=== PATIENT | female | born 1950 | race Caucasian/White ===

== ENCOUNTER → 2017-10-04 | Outpatient (CLI) | payer MEDICARE ==
[~2017-10-04] MED LIST: ALPR0.25 PO; DICY20TA10 PO; GABA600T PO; LINA290C PO; MIRA0.12 PO; PRAM1TAB PO; TRAM50 PO
[2017-10-04 10:15] LABS: HEMATOCRIT 40.3 % (35.0-46.0); HEMOGLOBIN 13.7 GM/DL (11.6-15.3); MEAN CELL VOLUME 91.7 FL (80.0-100.0); MEAN CORPUSCULAR HEMOGLOBIN 31.2 PG (27.0-34.0); MEAN CORPUSCULAR HGB CONC 34.1 % (32.0-36.0); MEAN PLATELET VOLUME 8.7 FL (7.0-11.0); PLATELET COUNT 256 TH/MM3 (150-450); RED BLOOD COUNT 4.39 MIL/MM3 (4.00-5.30); RED CELL DISTRIBUTION WIDTH 13.1 % (11.6-17.2); WHITE BLOOD COUNT 4.9 TH/MM3 (4.0-11.0)
[2017-10-04 10:17] LABS: BACTERIA, URINE MANY /hpf; BILIRUBIN, URINE NEG (NEG); BLOOD, URINE NEG (NEG); GLUCOSE,URINE NEG (NEG); KETONE, URINE NEG (NEG); MUCUS URINE FEW /lpf (OCC); NITRITE,URINE POS (NEG); PH, URINE 6.5 (5.0-8.5); URINE COLOR YELLOW (YELLW/STRAW); URINE LEUKOCYTE ESTERASE SMALL (NEG)
[2017-10-04 10:27] LABS: PROTHROMBIN TIME - PATIENT 9.8 SEC (9.8-11.6)
[2017-10-04 10:40] LABS: BICARBONATE 31.4 MEQ/L (21.0-32.0); CALCIUM 9.1 MG/DL (8.5-10.1); CREATININE 0.65 MG/DL (0.50-1.00)
--- NOTE | 2017-10-04 14:54 | EKG ---
Date Performed: 10/04/2017 Time Performed: 09:32:27 PTAGE: 67 years EKG: SINUS BRADYCARDIA WITH FIRST DEGREE AV BLOCK POSSIBLE RIGHT VENTRICULAR CONDUCTION DELAY AB NORMAL ECG NO PREVIOUS TRACING DOCTOR: Attila Monsalve Interpretating Date/Time 10/04/2017 14:52:13
== END ==
LOC: CPRE 08:53
PROVIDERS: ATTEND Orthopaedic Surgery
DX: Z01.810 Encounter for preprocedural cardiovascular examination (principal); Z01.812 Encounter for preprocedural laboratory examination; M17.11 Unilateral primary osteoarthritis, right knee; M79.609 Pain in unspecified limb; B96.20 Unspecified Escherichia coli [E. coli] as the cause of diseases classified elsewhere; R94.31 Abnormal electrocardiogram [ECG] [EKG]
CPT/HCPCS: 36415; 80048; 81001; 85027; 85610; 85730; 87077; 87086; 87186; 93005

== ENCOUNTER → 2017-10-21 | Outpatient (CLI) | payer MEDICARE ==
[~2017-10-21] MED LIST changes: -LINA290C PO; -MIRA0.12 PO; -TRAM50 PO
[2017-10-21 11:15] LABS: BILIRUBIN, URINE NEG (NEG); BLOOD, URINE NEG (NEG); GLUCOSE,URINE NEG (NEG); KETONE, URINE NEG (NEG); NITRITE,URINE NEG (NEG); URINE COLOR Straw (YELLW/STRAW); URINE LEUKOCYTE ESTERASE NEG (NEG)
== END ==
LOC: CPRE 09:44
PROVIDERS: ATTEND Orthopaedic Surgery
DX: Z01.812 Encounter for preprocedural laboratory examination (principal)
CPT/HCPCS: 81001

== ENCOUNTER 2017-10-28 05:10 | Inpatient (IN) | payer MEDICARE ==
[~2017-10-28] VITALS: Ht 177.8 cm; Wt 102.6 kg
[2017-10-28] MEDS ORDERED: SODIUM CHLORID 0.9% 500 ML IV PRN (05:45)
[2017-10-28] MEDS ORDERED: METOPROLOL TARTRATE 25 MG TAB PO PRN (05:45)
[2017-10-28] MEDS ORDERED: CHLORHEXIDINE GLUCONATE 4% SOLN 120 ML BTL TOPICAL SCH (05:45)
[2017-10-28] MEDS ORDERED: TRANEXAMIC ACID INJ 870 MG in SODIUM CHLORIDE 0.9% INJ 100 ML IV SCH (05:45)
[2017-10-28] MEDS ORDERED: CHLORHEXIDINE GLUCONATE 2 % 1 PACK (2 CLOTHS) TOPICAL PRN (05:45)
[2017-10-28] MEDS ORDERED: LACTATED RINGER'S 1000 ML IV PRN (05:45)
[2017-10-28] MEDS ORDERED: ceFAZolin 2 GM PREMIX 50 ML IV SCH (05:45)
[2017-10-28] MEDS ORDERED: EXPAREL PERI-ARTICULAR INJECTION (TOTAL VOL. 100 ML) P-ARTICULR SCH ×2 (05:45)
[2017-10-28] MEDS ORDERED: POVIDONE IODINE 5% (ANTISEPSIS KIT) 4 APPLICATIONS EACH NARE PRN (05:45)
[2017-10-28] MEDS ORDERED: FAT EMULSION 20% INJ 0 ML ONE (06:00)
[2017-10-28] MEDS ORDERED: GENTAMICIN SULFATE 80 MG/2 ML VIAL ONE (06:06)
[2017-10-28] MEDS ORDERED: BUPIVACAINE LIPOSOME PF 1.3% 20 ML VIAL ONE (06:26)
[2017-10-28] MEDS ORDERED: LIDOCAINE HCL 1% PF 5 ML AMPULE ONE (06:26)
[2017-10-28] MEDS ORDERED: MIDAZOLAM HCL 5 MG/5 ML VIAL ONE (06:27)
[2017-10-28] MEDS ORDERED: BUPIVACAINE HCL PF 0.25% 30 ML VIAL ONE (06:27)
[2017-10-28] MEDS ORDERED: ACETAMINOPHEN 1000 MG/100 ML 100 ML IV ONE (06:40)
[2017-10-28] MEDS ORDERED: MORPHINE SULFATE 4 MG/ML INJ ONE (06:40)
[2017-10-28] MEDS ORDERED: BUPIVACAINE PF 0.75% DEX-WATER INJ 2 ML AMP ONE ×2 (06:42→07:04)
[2017-10-28] MEDS ORDERED: MAGNESIUM HYDROXIDE SUSP 30 ML CUP PO PRN (07:00)
[2017-10-28] MEDS ORDERED: Post-op Orders (for Pharmacy) XX ONE (07:00)
[2017-10-28] MEDS ORDERED: ZOLPIDEM TARTRATE 5 MG TAB PO PRN (07:00)
[2017-10-28] MEDS ORDERED: MORPHINE SULFATE 4 MG/ML INJ IV PUSH PRN (07:00)
[2017-10-28] MEDS ORDERED: TRANEXAMIC ACID INJ 0 MG in SODIUM CHLORIDE 0.9% INJ 100 ML IV SCH (07:00)
[2017-10-28] MEDS ORDERED: ACETAMINOPHEN/HYDROcodone 325 MG/7.5 MG TAB PO PRN (07:00)
[2017-10-28] MEDS: TRANEXAMIC ACID INJ 870 MG in SODIUM CHLORIDE 0.9% INJ 100 ML IV SCH ×2 (07:23→10:24)
[2017-10-28] MEDS ORDERED: HYDROmorphone HCL PF 2 MG/ML VIAL ONE (08:07)
[2017-10-28] MEDS ORDERED: PROPOFOL 500 MG/50 ML INJ 50 ML ONE (08:08)
--- NOTE | 2017-10-28 09:40 | PD.OP ---
Operative Report Date of Surgery: Oct 28, 2017 Preoperative Diagnosis: (1) Primary osteoarthritis of right knee Postoperative Diagnosis: (1) Primary osteoarthritis of right knee Procedure: Right total knee arthroplasty using Gallion Triathlon prosthesis (uncemented) Anesthesia: Spinal with supplemental adductor canal block regional and local with Exparel Surgeon: Lloyd Luu MD Electrical System Specialist(s): DOROTHY Mendoza Operation and Findings: Indications and Findings: This 67-year-old woman has had long-standing right knee pain nonresponsive to conservative measures. Her ambulation tolerance is 10-15 minutes. She has difficulty with stairs and standing from a seated position. She has not responded to anti-inflammatory agents, activity modification, exercises or ambulatory aids. Physical findings showed severe crepitation on range of motion with tenderness on motion and antalgic gait. Some effusion. Imaging studies including x-ray and MRI show severe arthritis with loss of articular cartilage to [id number] in the patellofemoral compartment, significant degenerative change in the medial compartment especially as well. Operative findings: There is severe osteoarthritis in the right knee with patellofemoral articular cartilage loss to [id number] with eburnation and osteophytes. There are medial and lateral osteophytes. The medial compartment had marked irregularity going down to expose subchondral bone in the medial femoral condyle especially. The prosthesis used was a Camryn Triathlon prosthesis. The femur was a size 7, cruciate retaining, uncemented. The tibial baseplate was a size 7 Tritanium with a 11 mm cruciate retaining X3 polyethylene spacer. The patella was a size 38 mm asymmetric Tritanium backed. The patient was brought to the clean-air operating suite. A spinal anesthetic was administered as well as a regional anesthetic by adductor canal block. The position was supine with a small bolster under the hip on the operative side. A pneumatic tourniquet was applied to the upper thigh. The lower extremity was prepped with alcohol, Hibiclens and ChloraPrep and draped in the usual manner with the knee draped free. An appropriate timeout procedure was carried out. An incision was made from about 3 fingerbreadths above the superior medial pole of patella down the tibial tubercle on the medial side. The incision was deepened through the subcutaneous tissue to the retinacular structures which were exposed medially and laterally. A medial retinacular incision was made from the superior middle pole of patella down the tibial tubercle and up into the quadriceps tendon splitting it longitudinally and the medial one third. The patella was reflected. The infrapatellar fat pad was debulked. The anterior cruciate ligament was excised. Medial and lateral meniscectomies were initiated. Fenestrations were made in the distal femur and proximal tibia for intramedullary referencing guides. The distal femoral cutting guide and jig were assembled for a 5, 8 mm cut. When this was fit into position,the cutting block was stabilized with pins. The jig was removed. The distal femoral cut was then completed with the oscillating saw. The sizing guide was positioned in place along Whitesides line and the epicondylar axis and stabilized with pins. The femoral size was determined as noted above. The 4-in-1 cutting block was positioned in place. Anterior and posterior cuts were made followed by posterior and anterior chamfer cuts taking care to prevent injury to ligamentous structures. Osteophytes were trimmed from the distal femur. A bone plug was placed into the fenestration of the distal femur. The proximal tibia was exposed. The medial and lateral meniscectomies were completed. The proximal tibial cutting guide was positioned in place and stabilized with a pin for rotation. The depth of cut was verified with a stylus off the high side. The cutting block was stabilized with pins. The jig was removed. The depth of cut was verified and adjusted appropriately with the use of the spacer block. The proximal tibial cut was made with the oscillating saw taking care to prevent injury to neurovascular and ligamentous structures. Proximal tibial bone was removed. Local anesthetic was administered with Exparel in the posterior capsule. The tibial baseplate trial was positioned in place. After verifying the appropriate size, the base plate trial was positioned in place along with its spacer. The femoral component was impacted into place. The alignment was checked. The tibial baseplate was pinned in place on the tibia. Attention was directed to the patella. The patella drill guide was positioned in place for the appropriate sized patella. Patellar drilling was then carried out. The trial patella was positioned in place. The knee was taken through a range of motion which was easily 0 extension to 140. The patella trial was removed. The femoral drill holes were made. The femoral trials were removed. The tibial spacer was removed. A bone plug was placed into the proximal tibia. The tibial punch was impacted through the proximal tibial punch guide. This was all removed followed by placement of the tibial drill guide. The tibial drill holes were made. The guide was removed. The cut ends of bone were cleaned with pulse lavage. The tibial baseplate was impacted into place and seated appropriately. The spacer was inserted. The the femoral component was impacted into place and seated appropriately. The patella component was seated with the patellar vice and tightened appropriately. Bone wax was placed around the exposed cancellus bone on the femur. The knee was taken through a range of motion which was comparable to the previous range of motion with excellent stability in flexion and extension and appropriate patellofemoral tracking. The remainder of the Exparel was injected throughout the knee as a local anesthetic. Drains were brought out the superior lateral aspect of the suprapatellar pouch. Wound closure commenced using 0 Vicryl interrupted [id number] sutures for the capsular and fascial structures, 2-0 Vicryl interrupted simple sutures with buried knots for the subcutaneous tissues and 4-0 Monocryl, continuous subcuticular closure for the skin. The wound was dressed with Dermabond Prineo followed by a dry sterile dressing. Sterile soft roll with a cooling pad and Dakota bandage from the base of the toes to mid thigh were applied. Patient was transferred from the operating room to the recovery room in satisfactory condition having tolerated procedure well. Counts were correct. Specimens: None. Estimated blood loss: 400 mL Genny Luu MD (Charles) Oct 28, 2017 09:40
--- NOTE | 2017-10-28 09:43 | HHI.FF ---
Face to Face Verification Diagnosis: (1) Status post total right knee replacement Physical Therapy Gait training Knee: Total knee, Protocol: Right, Gait training, Full weight bearing Right LE Weight Bearing: WB as tolerated Right LE Range of Motion: Active ROM (Active, active assisted, passive range of motion. Range of motion goal is 0 extension to 135 of flexion. Range of motion in the operating room was 0 extension to 140 of flexion.) Nursing Nursing: Dressing changes Dressing Changes: Daily dressing change, Coverderm/Primapore Additional Instructions Do not remove Dermabond Prineo. I have seen patient Essie Hsu on 10/28/17. My clinical findings support the need for the requested home health care services because: Ltd mobility - disease progression Limited ability to care for self High risk of falls I certify that my clinical findings support that this patient is homebound because: Post-op weakness Unsteady gait/balance Unsafe to leave home unassisted Genny Luu MD ([place]) Oct 28, 2017 09:42
[2017-10-28] MEDS ORDERED: HYDR-3580 PO (09:45)
[2017-10-28] MEDS ORDERED: ECASA81 PO (09:45)
[2017-10-28] MEDS ORDERED: DO NOT ADM ANY ANTICOAGULANT DRUGS PRN (09:49)
[2017-10-28] MEDS: LACTATED RINGER'S 1000 ML INJ 1,000 ML IV SCH (10:00)
[2017-10-28] MEDS: KETOROLAC TROMETHAMINE 30 MG/ML (IVP) VIAL IVP SCH ×3 (10:00→22:25)
[2017-10-28] MEDS ORDERED: *MEPERIDINE 25 MG INJ VIAL PERIprocedural Use ONLY ONE (10:06)
[2017-10-28] MEDS ORDERED: *ONDANSETRON 4 MG VIAL PERIprocedural Use ONLY ONE (10:27)
--- NOTE | 2017-10-28 10:29 | RADRPT ---
EXAM DATE: 10/28/2017 10:14 AM EDT AGE/SEX: 67 years / Female INDICATIONS: Post-op right knee replacement. CLINICAL DATA: This is the patient's initial encounter. Patient reports that signs and symptoms have been present for 1 day and indicates a pain score of 5/10. MEDICAL/SURGICAL HISTORY: None. Appendectomy. Tonsillectomy. COMPARISON: No prior exams available for comparison. FINDINGS: AP and lateral views of the knee following arthroplasty reveals a prosthesis in anatomic alignment. F racture is not appreciated. Surgical drain is evident . CONCLUSION: Status post total knee arthroplasty. Bear Lynch MD FACR Electronically signed by: Bear Lynch MD 10/28/2017 10:28 AM EDT
[2017-10-28] MEDS ORDERED: ceFAZolin INJ 1,000 MG VIAL IV ONE (12:00)
[2017-10-28] MEDS ORDERED: ONDANSETRON HCL 4 MG/2 ML VIAL IV PUSH ONE (12:00)
[2017-10-28] MEDS ORDERED: LACTATED RINGER'S 1000 ML INJ 1,000 ML IV ONE (12:00)
[2017-10-28] MEDS ORDERED: DEXAMETHASONE SOD PHOS 4 MG/ML VIAL IV ONE (12:00)
[2017-10-28] MEDS ORDERED: PROPOFOL 200 MG/20 ML AMP IV ONE (12:00)
[2017-10-28] MEDS: GABAPENTIN 300 MG CAP PO SCH ×2 (13:00→17:33)
[2017-10-28] MEDS: PRAMIPEXOLE DIHYDROCHLORIDE 1 MG TAB PO SCH (13:00)
--- NOTE | 2017-10-28 15:40 | PD.CONS ---
HPI Service [facility] Consult Requested By Dr. BIANCA Luu Reason for Consult Opinion recommendation treatment patient's restless leg syndrome Primary Care Physician Taran Wahl MD Diagnoses: History of Present Illness 67-year-old white female with a history of osteoarthritis was had long-term right knee pain despite conservative treatment electively underwent a right total knee arthroplasty with Dr. Luu today. She states that she does not struggle with constipation. She denies any blood in the stools or black tarry stools. She states her restless leg syndrome has been controlled by her home medications prescribed by her primary care physician. She states that she does not do well on tramadol and requests a different pain medication postoperatively. Currently, she states her pain is controlled. Review of Systems Constitutional: DENIES: Fatigue, Fever, Chills, Change in appetite Endocrine: DENIES: Heat/cold intolerance Eyes: DENIES: Blurred vision, Eye pain, Vision loss Ears, nose, mouth, throat: DENIES: Hearing loss, Nasal discharge, Throat pain, Ear Pain, Sinus Pain Respiratory: DENIES: Cough, Shortness of breath Cardiovascular: DENIES: Chest pain, Palpitations, Dyspnea on Exertion, Lower Extremity Edema Gastrointestinal: DENIES: Abdominal pain, Black stools, Bloody stools, Constipation, Diarrhea, Nausea, Vomiting Genitourinary: DENIES: Dysuria Musculoskeletal: COMPLAINS OF: Joint pain (Right knee pain), DENIES: Muscle aches, Stiffness Integumentary: DENIES: Rash Hematologic/lymphatic: DENIES: Bruising, Lymphadenopathy Immunologic/allergic: DENIES: Eczema Neurologic: DENIES: Headache, Localized weakness, Paresthesias Psychiatric: DENIES: Anxiety, Depression, Suicidal Ideation Past Family Social History Allergies: Coded Allergies: No Known Allergies (Unverified Allergy, Unknown, 10/28/17) Past Medical History Restless leg syndrome Osteoarthritis Past Surgical History Appendectomy Tonsillectomy Lap lysis of adhesions Left arthroscopic knee surgery Reported Medications Xanax 0.25 mg as directed as needed Gabapentin 600 mg p.o. 3 times daily Hydrocodone 1 p.o. every 4 as needed for pain Pramipexole 1 mg PO tid Family History Mother had colon cancer Social History Does not smoke cigarettes or drink alcohol Physical Exam Vital Signs Vital Signs Date Time Temp Pulse Resp B/P (MAP) Pulse Ox O2 Delivery O2 Flow Rate FiO2 10/28/17 11:00 52 16 112/59 (76) 95 Room Air 10/28/17 10:45 50 16 113/55 (74) 95 Room Air 10/28/17 10:30 52 16 107/54 (71) 98 Room Air 10/28/17 10:15 50 16 105/60 (75) 95 Room Air 10/28/17 10:00 49 16 109/55 (73) 94 Room Air 10/28/17 09:48 98.1 57 16 113/55 (74) 98 Nasal Cannula 2 10/28/17 06:10 98.8 56 18 151/70 (97) 99 Physical Exam GENERAL: This is a well-nourished, well-developed patient, in no apparent distress. SKIN: No rashes, ecchymoses or lesions. Cool and dry. HEAD: Atraumatic. Normocephalic. No temporal or scalp tenderness. EYES: Pupils equal round and reactive. Extraocular motions intact. No scleral icterus. No injection or drainage. ENT: Nose without bleeding, purulent drainage or septal hematoma. NECK: Trachea midline. No JVD or lymphadenopathy. Supple, nontender, no meningeal signs. CARDIOVASCULAR: Regular rate and rhythm RESPIRATORY: Clear to auscultation. Breath sounds equal bilaterally. No wheezes , rales, or rhonchi. GASTROINTESTINAL: Abdomen soft, non-tender, nondistended. No hepato-splenomegaly , or palpable masses. No guarding. MUSCULOSKELETAL: Right knee on CPM machine, bandage clean dry and intact NEUROLOGICAL: Awake and alert to person place time and situation. Cranial nerves II through XII intact. Motor and sensory grossly within normal limits. Normal speech. Assessment and Plan Assessment and Plan 1. Status post right total knee arthroplasty continue postoperative care, pain control, physical therapy per orthopedic surgery Dr. Luu 2. History of restless leg syndrome resume home Pramipexole 3. DVT prophylaxis risks and benefits of anticoagulation discussed with patient today. Initiate aspirin as per orthopedic surgery Thank you for this consultation Jacque Jack MD Oct 28, 2017 15:40
[2017-10-28 16:44] VITALS: BP 125/59; PULSE 55; RESP 18; TEMP 97; O2SAT 98
[2017-10-28] MEDS: ACETAMINOPHEN/HYDROcodone 325 MG/7.5 MG TAB PO PRN ×2 (17:32→22:25)
[2017-10-28] MEDS: ONDANSETRON HCL 4 MG/2 ML VIAL IVP PRN (17:33)
[2017-10-28 20:00] VITALS: BP 119/57; PULSE 65; RESP 19; TEMP 97.9; O2SAT 65; O2SAT 95
[2017-10-29] VITALS: BP 120/66; PULSE 68; RESP 19; TEMP 97.7; O2SAT 95
[2017-10-29] MEDS: KETOROLAC TROMETHAMINE 30 MG/ML (IVP) VIAL IVP SCH ×4 (03:18→21:35)
[2017-10-29] MEDS: ACETAMINOPHEN/HYDROcodone 325 MG/7.5 MG TAB PO PRN ×2 (03:19→08:04)
[2017-10-29 04:00] VITALS: BP 129/67; PULSE 68; RESP 18; TEMP 97; O2SAT 96
--- NOTE | 2017-10-29 06:16 | PD.ORT.PN ---
Subjective Post Op Day #: 1 Subjective Remarks She is doing well. She has been up to the chair without much difficulty. She did was not dizzy when doing so. Range of Motion -5 extension to 75 of flexion. Distance Walked 2-1/2 feet forwards and back in PACU with physical therapy. This was limited by vertigo. Objective Vitals Vital Signs Date Time Temp Pulse Resp B/P (MAP) Pulse Ox O2 Delivery O2 Flow Rate FiO2 10/29/17 04:00 97.0 68 18 129/67 (87) 96 10/29/17 00:00 97.7 68 19 120/66 (84) 95 10/28/17 20:00 97.9 65 19 119/57 (77) 95 10/28/17 16:44 97.0 55 18 125/59 (81) 98 10/28/17 15:25 98.1 53 16 116/56 (76) 93 Room Air 10/28/17 15:00 53 16 116/56 (76) 93 Room Air 10/28/17 14:00 50 16 114/55 (74) 93 Room Air 10/28/17 13:00 51 16 110/58 (75) 95 Room Air 10/28/17 12:00 54 16 106/55 (72) 95 Room Air 10/28/17 11:00 52 16 112/59 (76) 95 Room Air 10/28/17 10:45 50 16 113/55 (74) 95 Room Air 10/28/17 10:30 52 16 107/54 (71) 98 Room Air 10/28/17 10:15 50 16 105/60 (75) 95 Room Air 10/28/17 10:00 49 16 109/55 (73) 94 Room Air 10/28/17 09:48 98.1 57 16 113/55 (74) 98 Nasal Cannula 2 I/O 10/28/17 10/28/17 10/28/17 10/29/17 10/29/17 10/29/17 07:00 15:00 23:00 07:00 15:00 23:00 Intake Total 1700 ml 550 ml 240 ml Output Total 150 ml Balance 1550 ml 550 ml 240 ml Intake Oral 550 ml 240 ml Other 1700 ml Output Estimated Blood Loss 150 ml # Voids 1 2 Imaging Last 24 hours Impressions Knee X-Ray 10/28/17 0632 Signed Impressions: CONCLUSION: Status post total knee arthroplasty. Bear Lynch MD FACR Objective Remarks She is resting comfortably, supine in bed, in the CPM. The neurovascular status is intact. The dressing is dry and intact. Assessment & Plan Ortho Post Op Day #: 1 Problem List: (1) Primary osteoarthritis of right knee ICD Codes: M17.11 - Unilateral primary osteoarthritis, right knee Status: Resolved (2) Status post total right knee replacement ICD Codes: Z96.651 - Presence of right artificial knee joint Plan: Continue postop care and PT. Assessment and Plan Condition: Good. Orthopedically stable. DVT prophylaxis: TEDs, aspirin, sequentials. Discharge plans: Home with home health care. An appointment was scheduled through the office. Prescriptions: [place] 7.5/325 Genny Luu MD (Charles) Oct 29, 2017 06:16
--- NOTE | 2017-10-29 06:28 | HHI.DS ---
Discharge Summary Admission Date Oct 28, 2017 at 05:10 Discharge Date: Oct 29, 2017 Admitting Diagnosis Primary osteoarthritis, right knee. Diagnosis: (1) Primary osteoarthritis of right knee Diagnosis: Principal ICD Codes: M17.11 - Unilateral primary osteoarthritis, right knee Status: Resolved (2) Status post total right knee replacement Diagnosis: Principal ICD Codes: Z96.651 - Presence of right artificial knee joint Procedures Right total knee arthroplasty with Camryn Triathlon prosthesis (uncemented) on 09/27/2017. Brief History This is a 67 year old female patient has had long-standing pain in her right knee progressively worsening and not responding to conservative, nonoperative methods as detailed in the history and physical examination. Physical findings showed crepitation on range of motion, an effusion, antalgic gait and osteophytes. Imaging studies showed severe osteoarthritis particularly in the patellofemoral and medial compartments. Imaging Last 72 hours Impressions Knee X-Ray 10/28/17 0649 Signed Impressions: CONCLUSION: Status post total knee arthroplasty. Bear Lynch MD FACR PE at Discharge She is resting comfortably, supine in bed, in the CPM. The neurovascular status is intact. The dressing is dry and intact. Hospital Course The patient was admitted as noted above. The above noted operative procedure was carried out that day. Preoperatively prophylactic antibiotics were administered Ancef according to protocol. These were continued postoperatively. The patient also received tranexamic acid to help with hemostasis according to protocol. In the postanesthesia care unit a continuous passive motion device was initiated. Also initiated were mechanical methods of DVT prophylaxis in the form of ISAIAS stockings and sequentials. Physical therapy was initiated on the day of surgery. On postoperative day #1 physical therapy continued. The use of the continuous passive motion device continued. DVT prophylaxis with aspirin 81 mg was initiated at this time. The patient continued physical therapy throughout the hospitalization. The distance walked and range of motion improved throughout the hospitalization. The patient was discharged on postoperative day 1 with the disposition being to home with home health care. An appointment for follow-up was made prior to admission. Pt Condition on Discharge: Good Discharge Disposition: Disch w/ Home Health Serv Discharge Instructions Diet Instructions: As Tolerated, No Restrictions Activities You Can Perform: Full Weight Bearing, Shower Only-No Bath Activities to Avoid: Lifting/Bending, Strenuous Activity, Bathing, Driving Follow up Referrals: Orthopedics with Genny Luu MD (Charles) New Medications: Aspirin DR (Aspirin DR) 81 Mg Tabdr 81 MG PO BID for Prevent Blood Clot for 30 Days, #60 TAB Hydrocodone/Acetaminophen (Hydrocodone-Acetamin 7.5-325) 7.5 Mg-325 Mg Tablet 1 TAB PO Q4H PRN for PAIN SCALE 4 TO 10, #40 TAB Continued Medications: Alprazolam (Alprazolam) 0.25 Mg Tab 0.25 MG PO DIRECTED PRN for ANXIETY, TAB 0 Refills Gabapentin (Gabapentin) 600 Mg Tab 600 MG PO TID, #90 TAB 0 Refills Pramipexole (Pramipexole) 1 Mg Tab 1 MG PO TID for RESTLESS LEG SYNDROME, #90 TAB 0 Refills Genny Luu MD (Charles) Oct 29, 2017 06:28
[2017-10-29 06:58] LABS: HEMATOCRIT 28.2 % (35.0-46.0); HEMOGLOBIN 9.7 GM/DL (11.6-15.3)
[2017-10-29 08:00] VITALS: BP 128/61; PULSE 73; RESP 18; TEMP 98.3; O2SAT 94
[2017-10-29] MEDS: LACTATED RINGER'S 1000 ML INJ 1,000 ML IV SCH ×2 (08:00→19:26)
[2017-10-29] MEDS: ASPIRIN EC 81 MG TABEC PO SCH ×2 (08:04→19:29)
[2017-10-29] MEDS: PRAMIPEXOLE DIHYDROCHLORIDE 1 MG TAB PO SCH ×2 (08:04→12:59)
[2017-10-29] MEDS: GABAPENTIN 300 MG CAP PO SCH ×2 (08:04→12:59)
[2017-10-29] MEDS ORDERED: ACETAMINOPHEN/HYDROcodone 325 MG/5 MG TAB PO PRN (09:30)
--- NOTE | 2017-10-29 11:12 | HHI.PR ---
Subjective Remarks Patient reports mild nausea cannot tolerate [place]. She also reports fatigue and intermittent lightheadedness. She has not gotten up to do physical therapy yet. Objective Vitals Vital Signs Date Time Temp Pulse Resp B/P (MAP) Pulse Ox O2 Delivery O2 Flow Rate FiO2 10/29/17 08:00 98.3 73 18 128/61 (83) 94 10/29/17 04:00 97.0 68 18 129/67 (87) 96 10/29/17 00:00 97.7 68 19 120/66 (84) 95 10/28/17 20:00 97.9 65 19 119/57 (77) 95 10/28/17 16:44 97.0 55 18 125/59 (81) 98 10/28/17 15:25 98.1 53 16 116/56 (76) 93 Room Air 10/28/17 15:00 53 16 116/56 (76) 93 Room Air 10/28/17 14:00 50 16 114/55 (74) 93 Room Air 10/28/17 13:00 51 16 110/58 (75) 95 Room Air 10/28/17 12:00 54 16 106/55 (72) 95 Room Air I/O 10/28/17 10/28/17 10/28/17 10/29/17 10/29/17 10/29/17 07:00 15:00 23:00 07:00 15:00 23:00 Intake Total 1700 ml 550 ml 240 ml Output Total 150 ml 140 ml 80 ml Balance 1550 ml 550 ml 100 ml -80 ml Intake Oral 550 ml 240 ml Other 1700 ml Output Drainage Total 140 ml 80 ml Estimated Blood Loss 150 ml # Voids 1 2 Result Diagram: 10/29/17 0617 Objective Remarks GENERAL: This is a well-nourished, well-developed patient, in no apparent distress. CARDIOVASCULAR: Regular rate and rhythm RESPIRATORY: Clear to auscultation. Breath sounds equal bilaterally. No wheezes , rales, or rhonchi. GASTROINTESTINAL: Abdomen soft, non-tender, nondistended. Normal active bowel sounds MUSCULOSKELETAL: Right lower extremity in CPM and bandage clean dry and intact with drain in place. NEURO: Alert & Oriented x4 to person, place, time, situation. Moves all ext x4 A/P Assessment and Plan 1. Status post operative day #1 right total knee arthroplasty continue postoperative care, pain control, physical therapy per orthopedic surgery Dr. Luu 2. History of restless leg syndrome resume home Pramipexole 3. DVT prophylaxis aspirin as per orthopedic surgery 4. Postoperative nausea may be due to [place]. Will have extra strength Tylenol available as an option for pain. Antiemetic Zofran provided. 5. Postoperative anemia due to blood loss from surgery - monitor hemoglobin encourage oral intake. 6. Intermittent dizziness may be due to poor oral intake and postoperative anemia encourage oral fluid intake, continue IV fluid hydration. Jacque Jack MD Oct 29, 2017 11:12
[2017-10-29] MEDS: ACETAMINOPHEN 325 MG TAB PO PRN ×3 (11:44→19:28)
[2017-10-29 12:00] VITALS: BP 114/57; PULSE 54; RESP 18; TEMP 97.7; O2SAT 100
[2017-10-29 16:00] VITALS: BP 121/58; PULSE 59; RESP 18; TEMP 97.8; O2SAT 97
[2017-10-29] MEDS: DOCUSATE SODIUM 100 MG CAP PO SCH (19:29)
[2017-10-29] MEDS ORDERED: PRAMIPEXOLE DIHYDROCHLORIDE 1 MG TAB PO SCH (21:00)
[2017-10-29] MEDS ORDERED: GABAPENTIN 300 MG CAP PO SCH (21:00)
[2017-10-30 01:31] VITALS: BP 115/58; PULSE 66; RESP 18; TEMP 98.6; O2SAT 98
[2017-10-30] MEDS: ONDANSETRON HCL 4 MG/2 ML VIAL IVP PRN (03:54)
[2017-10-30] MEDS: KETOROLAC TROMETHAMINE 30 MG/ML (IVP) VIAL IVP SCH (03:55)
[2017-10-30 05:11] VITALS: BP 128/59; PULSE 64; RESP 20; TEMP 98.4
[2017-10-30] MEDS: ACETAMINOPHEN 325 MG TAB PO PRN ×2 (05:55→09:46)
[2017-10-30] MEDS ORDERED: ZOFR4TAB3 SL (07:59)
[2017-10-30 08:00] VITALS: BP 121/56; PULSE 65; RESP 18; TEMP 98.7; O2SAT 96
[2017-10-30] MEDS: LACTATED RINGER'S 1000 ML INJ 1,000 ML IV SCH (09:00)
[2017-10-30] MEDS: ASPIRIN EC 81 MG TABEC PO SCH (09:13)
[2017-10-30] MEDS: DOCUSATE SODIUM 100 MG CAP PO SCH (09:13)
--- NOTE | 2017-10-30 09:41 | HHI.PR ---
Subjective Remarks Doing okay. No further nausea after taking Tylenol versus [place]. Eating better. Would like to go home today. Objective Vitals Vital Signs Date Time Temp Pulse Resp B/P (MAP) Pulse Ox O2 Delivery O2 Flow Rate FiO2 10/30/17 05:11 98.4 64 20 128/59 (82) 10/30/17 01:31 98.6 66 18 115/58 (77) 98 10/29/17 16:00 97.8 59 18 121/58 (79) 97 10/29/17 12:00 97.7 54 18 114/57 (76) 100 I/O 10/29/17 10/29/17 10/29/17 10/30/17 10/30/17 10/30/17 07:00 15:00 23:00 07:00 15:00 23:00 Intake Total 240 ml 480 ml Output Total 140 ml 81 ml 30 ml 0 ml Balance 100 ml 399 ml -30 ml 0 ml Intake Oral 240 ml 480 ml Output Stool Total 1 ml Drainage Total 140 ml 80 ml 30 ml 0 ml # Voids 2 3 1 # Bowel Movements 1 Result Diagram: 10/29/17 0617 Objective Remarks GENERAL: This is a well-nourished, well-developed patient, in no apparent distress. CARDIOVASCULAR: Regular rate and rhythm RESPIRATORY: Clear to auscultation. Breath sounds equal bilaterally. No wheezes , rales, or rhonchi. GASTROINTESTINAL: Abdomen soft, non-tender, nondistended. Normal active bowel sounds MUSCULOSKELETAL: Right lower extremity in CPM and bandage clean dry and intact NEURO: Alert & Oriented x4 to person, place, time, situation. Moves all ext x4 A/P Assessment and Plan 1. Status post operative day #2 right total knee arthroplasty continue postoperative care, pain control, physical therapy per orthopedic surgery Dr. Luu 2. History of restless leg syndrome resume home Pramipexole 3. DVT prophylaxis aspirin as per orthopedic surgery 4. Postoperative nausea may be due to [place]. This has improved after taking extra strength Tylenol versus [place]. Antiemetic Zofran provided. 5. Postoperative anemia due to blood loss from surgery - monitor hemoglobin 6. Intermittent dizziness may be due to poor oral intake and postoperative anemia encourage oral fluid intake, continue IV fluid hydration.Symptoms has resolved overnight and patient is doing well for physical therapy Discharge Planning Discharge to home with home health care today Marcie,Jacque MD Oct 30, 2017 09:41
== END 2017-10-30 10:47 | disposition home health service (06) | DRG 470 ==
LOC: HSDI 05:10 → N06B 15:32 → UNDODISIN 10-29 14:35
PROVIDERS: ADMIT Orthopaedic Surgery; ATTEND Orthopaedic Surgery
PROC: 0SRC0JA Replacement of Right Knee Joint with Synthetic Substitute, Uncemented, Open Approach (ICD-10-PCS; principal; 2017-10-28 06:55)
DX: M17.11 Unilateral primary osteoarthritis, right knee (principal); D62 Acute posthemorrhagic anemia; G25.81 Restless legs syndrome; R11.0 Nausea; R42 Dizziness and giddiness
CPT/HCPCS: 73560; 85014; 85018; 86850; 86900; 86901; 94150; C1776; C9290; J0131; J0690; J1100; J1170; J1580; J1885; J2175; J2250; J2270; J2405; J7120